=== PATIENT | female | born 2000 | race Caucasian/White ===

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

== ENCOUNTER 2018-01-04 11:29 | Observation (INO) ==
[2018-01-04 12:10] LABS: Bilirubin,Urine Negative (Negative); Blood,Urine Negative (Negative); Clarity,Urine Turbid (Clear); Color,Urine Yellow (Yellow); Glucose,Urine (UA) Normal (Normal); Ketones,Urine 15 mg/dL (Negative); Leukocyte Esterase,Urine Large (Negative); Nitrite,Urine Negative (Negative); Protein,Urine Trace mg/dL (Neg-Trace); Specific Gravity,Urine 1.023 (1.010-1.025); Urobilinogen,Urine Normal (Normal)
[2018-01-04 12:11] LABS: Bacteria,Urine Many per hpf (None-Few); Squamous Epithelial Cell,Urine Many per lpf (None-Few); WBC,Urine TNTC per hpf (0-3)
[2018-01-04 12:20] LABS: Hyaline Casts,Urine None Seen per lpf (None-Few)
--- NOTE | 2018-01-04 13:31 | OB/GYN Progress Note ---
Date of Encounter: 01/04/18 Time of Encounter: 13:28 - Assessment and Plan (1) 36 weeks gestation of Current Visit: Yes Status: Acute (2) Uterine contractions Current Visit: Yes Status: Acute No change on serial cervical exams. Patient UA indicates possible UTI, will give Rx for Keflex 1000 mg twice a day for 7 days. Starts home with 1 to return to triage precautions. Patient verbalizes understanding Subjective - Subjective Interval history: 36+0 weeks gestation presents to labor and delivery triage with complaints of contractions since 5 AM. Patient states she has been having nausea and contractions since 5:00 this morning, also reports frequent urination. Patient states she thinks she might be leaking some fluid. Reports good movement and denies vaginal bleeding Antepartum ROS: loss of fluid, movement normal, contractions, no vaginal bleeding Objective - Vital Signs Vital Signs: Intake and Output 01/03/18 01/04/18 01/04/18 23:59 07:59 15:59 Other: Weight 63.8 kg Patient Weight 01/04/18 23:59 Weight 63.8 kg - Exam FHR: auscultation normal FHR comments: Baseline 145 Abdomen: Present: normal appearance, soft, gravid Cervical dilation: 3-4/80/-1 - Labs Labs: Abnormal lab results Urine Clarity Turbid (Clear) A 01/04/18 11:50 Urine Ketones 15 mg/dL (Negative) H 01/04/18 11:50 Ur Leukocyte Esterase Large (Negative) H 01/04/18 11:50 Urine Microscopic RBC 5-15 per hpf (0-3) H 01/04/18 11:50 Urine Microscopic WBC TNTC per hpf (0-3) H 01/04/18 11:50 Ur Squamous Epith Cells Many per lpf (None-Few) H 01/04/18 11:50 Urine Bacteria Many per hpf (None-Few) H 01/04/18 11:50 Ur Culture Indicated? NO. (NO) A 01/04/18 11:50
[2018-01-04 15:30] LABS: Amphetamine Screen,Urine Negative ng/mL (Cutoff=1000); Barbiturate Screen,Urine Negative ng/mL (Cutoff=200); Benzodiazepines Screen,Urine Negative ng/mL (Cutoff=200); Cannabinoid Screen,Urine Negative ng/mL (Cutoff = 50); Cocaine Screen,Urine Negative ng/mL (Cutoff= 300); Opiate Screen,Urine Negative ng/mL (Cutoff=300); Phencyclidine Screen,Urine Negative ng/mL (Cutoff=25)
== END 2018-01-04 13:37 | disposition home or self-care (01) ==
LOC: 1NENULAB
PROVIDERS: ADMIT Advanced Practice Midwife; ATTEND Advanced Practice Midwife

== ENCOUNTER 2018-01-05 13:44 | Observation (INO) ==
[2018-01-05 14:51] LABS: Bilirubin,Urine Small (Negative); Blood,Urine Negative (Negative); Color,Urine Orange (Yellow); Glucose,Urine (UA) Normal (Normal); Ketones,Urine 40 mg/dL (Negative); Leukocyte Esterase,Urine Moderate (Negative); Nitrite,Urine Positive (Negative); Protein,Urine 30 mg/dL (Neg-Trace); Specific Gravity,Urine 1.027 (1.010-1.025); Urobilinogen,Urine Normal (Normal)
[2018-01-05 14:53] LABS: Bacteria,Urine Few per hpf (None-Few); Squamous Epithelial Cell,Urine Many per lpf (None-Few); WBC,Urine 30-50 per hpf (0-3)
[2018-01-05 14:55] LABS: Clarity,Urine Hazy (Clear)
[2018-01-05] MEDS ORDERED: Ondansetron ODT 4 MG TAB.RAPDIS SL ONE (15:00)
[2018-01-05] MEDS ORDERED: Ringers Solution, Lactated 1,000 ML IVC ONE (15:04)
--- NOTE | 2018-01-05 15:04 | OB/GYN Progress Note ---
Date of Encounter: 01/05/18 Time of Encounter: 15:01 - Assessment and Plan (1) 36 weeks gestation of Current Visit: Yes Status: Acute Continuous electronic monitoring 2 hours (2) High risk teen in third trimester Current Visit: Yes Status: Acute (3) Uterine contractions Current Visit: Yes Status: Acute IV bolus of LR Cervix unchanged after 2 hours labor precautions given Discharge home (4) Von Willebrand disease Current Visit: Yes Status: Acute Subjective - Subjective Principal diagnosis: abdominal pain in Interval history: Ms. Sanchez is a 17-year-old at 36 weeks 1 day gestational age with an EDB of 02/01/18 dated by LMP who presents with complaints of contractions continued from yesterday. She reports there 10 minutes apart. She also complains of increased fluid leaking. She also complains of nausea with vomiting and diarrhea she states that started this morning. She denies fever. She reports positive movement, and denies vaginal bleeding. Antepartum ROS: loss of fluid, movement normal, contractions, no vaginal bleeding Objective - Exam FHR: category 1 FHR comments: Baseline 135 Moderate variability Accelerations present 15 x 15 No decelerations FHR category I Contractions every 2-3 minutes and palpate mild. She reports she is only feeling one about every 10 minutes. Auscultation: bilateral: normal Abdomen: Present: normal appearance, soft, gravid Uterus: Present: normal, firm Cervical dilation: 4 Cervix effacement: 80 station: -2 - Labs Labs: Abnormal lab results Ur Specimen Adequacy See below A 01/05/18 14:30 Urine Color [place] (Yellow) A 01/05/18 14:30 Urine Clarity Hazy (Clear) A 01/05/18 14:30 Ur Specific [place] 1.027 (1.010-1.025) H 01/05/18 14:30 Urine Protein 30 mg/dL (Neg-Trace) H 01/05/18 14:30 Urine Ketones 40 mg/dL (Negative) H 01/05/18 14:30 Urine Nitrite Positive (Negative) A 01/05/18 14:30 Urine Bilirubin Small (Negative) H 01/05/18 14:30 Ur Leukocyte Esterase Moderate (Negative) H 01/05/18 14:30
[2018-01-05] MEDS ORDERED: Ondansetron 4 MG/2 ML VIAL IVP ONE (15:05)
[2018-01-05 15:08] LABS: Amphetamine Screen,Urine Negative ng/mL (Cutoff=1000); Barbiturate Screen,Urine Negative ng/mL (Cutoff=200); Benzodiazepines Screen,Urine Negative ng/mL (Cutoff=200); Cannabinoid Screen,Urine Negative ng/mL (Cutoff = 50); Cocaine Screen,Urine Negative ng/mL (Cutoff= 300); Opiate Screen,Urine Negative ng/mL (Cutoff=300); Phencyclidine Screen,Urine Negative ng/mL (Cutoff=25)
[2018-01-05 15:09] LABS: Mucus,Urine Many (Few)
[2018-01-05 15:10] LABS: Yeast,Urine Few per hpf (None Seen)
[2018-01-05 15:11] LABS: Renal Epithelial Cells,Urine Few per hpf (None-Few); Transitional Epi Cells,Urine Few per hpf (None-Few)
== END 2018-01-05 17:09 | disposition home or self-care (01) ==
LOC: 1NENULAB
PROVIDERS: ADMIT Obstetrics & Gynecology; ATTEND Obstetrics & Gynecology

== ENCOUNTER 2018-01-06 12:57 | Observation (INO) ==
--- NOTE | 2018-01-06 14:57 | OB/GYN Progress Note ---
Date of Encounter: 01/06/18 Time of Encounter: 14:54 - Assessment and Plan (1) Encounter for suspected PROM, with rupture of membranes not found Current Visit: Yes Status: Acute Nitrazine negative, ferning negative (2) 36 weeks gestation of Current Visit: No Status: Acute (3) Uterine contractions Current Visit: No Status: Acute No change on serial cervical exams, discharged home with labor and when to return to triage precautions Subjective - Subjective Interval history: 36+2 weeks gestation presents to labor and delivery triage with complaints of contractions last night getting stronger this morning, has been feeling contractions since wednesday. Patient states is leaking some fluid. Reports good movement and denies vaginal bleeding Antepartum ROS: loss of fluid, movement normal, contractions, no vaginal bleeding Objective - Vital Signs Vital Signs: Intake and Output 01/05/18 01/06/18 01/06/18 23:59 07:59 15:59 Other: Weight 64 kg Patient Weight 01/06/18 23:59 Weight 64 kg - Exam FHR: auscultation normal FHR comments: Baseline 130 Abdomen: Present: normal appearance, soft, gravid Cervical dilation: 4/80/-2
[2018-01-06 15:32] LABS: Amphetamine Screen,Urine Negative ng/mL (Cutoff=1000); Barbiturate Screen,Urine Negative ng/mL (Cutoff=200); Benzodiazepines Screen,Urine Negative ng/mL (Cutoff=200); Cannabinoid Screen,Urine Negative ng/mL (Cutoff = 50); Cocaine Screen,Urine Negative ng/mL (Cutoff= 300); Opiate Screen,Urine Negative ng/mL (Cutoff=300); Phencyclidine Screen,Urine Negative ng/mL (Cutoff=25)
== END 2018-01-06 15:04 | disposition home or self-care (01) ==
LOC: 1NENULAB
PROVIDERS: ADMIT Student in an Organized Health Care Education/Training Program; ATTEND Student in an Organized Health Care Education/Training Program

== ENCOUNTER → 2018-01-12 22:46 | Observation (INO) ==
[2018-01-12 22:03] LABS: Amphetamine Screen,Urine Negative ng/mL (Cutoff=1000); Barbiturate Screen,Urine Negative ng/mL (Cutoff=200); Benzodiazepines Screen,Urine Negative ng/mL (Cutoff=200); Cannabinoid Screen,Urine Negative ng/mL (Cutoff = 50); Cocaine Screen,Urine Negative ng/mL (Cutoff= 300); Opiate Screen,Urine Negative ng/mL (Cutoff=300); Phencyclidine Screen,Urine Negative ng/mL (Cutoff=25)
--- NOTE | 2018-01-12 22:44 | OB/GYN Progress Note ---
Date of Encounter: 01/12/18 Time of Encounter: 22:40 - Assessment and Plan (1) 37 weeks gestation of Current Visit: Yes Status: Acute (2) Uterine contractions Current Visit: No Status: Acute Admission exam unchanged from office exam, no change on follow-up cervical exams. Discharged home with labor and when to return to triage precautions. Patient verbalizes understanding Subjective - Subjective Interval history: 37+1 presents with contractions since 1900. Pt states she started to have contractions and they have increased in intensity, reports good movement, denies vaginal bleeding or leaking of fluid. Antepartum ROS: movement normal, contractions, no loss of fluid, no vaginal bleeding Objective - Vital Signs Vital Signs: Intake and Output 01/12/18 01/12/18 01/12/18 07:59 15:59 23:59 Other: Weight 65.1 kg Patient Weight 01/12/18 23:59 Weight 65.1 kg - Exam FHR: auscultation normal Abdomen: Present: normal appearance, soft, gravid Cervical dilation: 4/80/-2
== END | disposition home or self-care (01) ==
LOC: 1NENULAB
PROVIDERS: ADMIT Advanced Practice Midwife; ATTEND Advanced Practice Midwife

== ENCOUNTER 2018-01-22 20:46 | Inpatient (IN) ==
--- NOTE | 2018-01-22 20:19 | OB/GYN History & Physical ---
Date of Encounter: 01/22/18 Time of Encounter: 20:16 Assessment and Plan (1) 38 weeks gestation of Current visit: Yes Status: Acute admitted for observation Will admit for delivery with cervical change (2) Von Willebrand disease Current visit: No Status: Acute Patient to follow up with Hematology antepartum Consult available in patient's chart History of Present Illness Chief complaint: contractions HPI: Ms. Sanchez is a 17 year old female at 38w4d presents to labor and delivery with complaints of contractions that started in the middle of the night and progressively have gotten stronger and closer together. Patient denies LOF but does reports pink spotting. Patient reports +FM but reports it has decreased. Patient reports she was 4cm at her last appointment. Primary OB provider is Dr. Nazario. Blood type: B+ Rubella: Immune Hep B: Nonreactive GBS: Negative Past Med Surg Social Fam HX - Past Medical History Source: patient Medical history: asthma, migraine, other Psychiatric history: anxiety, ADHD, bipolar, depression, PTSD, other - Past Surgical History Surgical History: other - Social History Smoking Status: Former smoker Smokeless Tobacco Status: No Alcohol use: none Drug use: none Activity Level: Independent ambulation Recent Out of Country Travel Within the Last 8 Weeks: No Exposure or Possible Exposure to Illness During Travel: No - Family History Mother Living Status: Still Living Hx Family Cardiac Disorders: Yes (unsure of heart condition.) Hx Family Respiratory Disorders: Yes (asthma) Hx Family Cancer: No Hx Family GI Disorders: No Hx Family Endocrine Disorder: Yes (diabetes) Hx Family Neuromuscular Disorders: No Hx Family Neurologic Disorders: No Hx Family HEENT Disorders: No Hx Family Autoimmune Disorders: No Obstetrical History - Pregnancies : 1 Para: 0 Term: 0 : 0 Ab's: 0 Livin Medications and Allergies Albuterol Sulfate [Albuterol Inhaler] 2 puff IH Q6HR PRN 10/11/16 [History] Pnv No.122/Iron/Folic Acid [ Multi Tablet] 1 each PO DAILY 11/30/17 [ History] 3 Allergy/AdvReac Type Severity Reaction Status Date / Time aripiprazole [From Abilify] Allergy Swelling Verified 01/22/18 19:51 of Lip/Tongue/Throat Carbinoxamine [From Rondec] Allergy See Verified 05/19/18 19:51 Comments prednisone Allergy Swelling Verified 01/22/18 19:51 of Lip/Tongue/Throat pseudoephedrine [From [facility]] Allergy See Verified 01/22/18 19:51 Comments Review of System OB - Constitutional Constitutional ROS IM: no chills, no fever(s), no headache(s) - Cardiovascular Cardiovascular: no chest pain, no palpitations, no pedal edema, no syncope - Respiratory Respiratory: no cough - Gastrointestinal Gastrointestinal: nausea, no constipation, no diarrhea, no heartburn, no vomiting - Genitourinary Genitourinary: urinary frequency, vaginal discharge (per HPI), no abnormal vaginal bleeding, no difficulty urinating, no dysuria, no flank pain, no urinary hesitancy, no urinary incontinence, no vaginal pruritis Exam - Constitutional Constitutional: well developed, well nourished, average body habitus - HEENT HEENT: Normocephaly, Mucus Membranes Moist - Neck Neck exam: full ROM, supple - Lungs Respiratory exam: CTAB - Cardiovascular Cardiovascular exam: RRR, +S1, +S2 - Abdomen Abdomen: Present: bowel sounds normal, gravid, non tender - Extremities Extremities exam: full ROM, normal capillary refill Deep Tendon Reflex Grade: 2+ Normal - Cervix Dilation: 5 (per RN) Effacement: 90 Station: -1 - Uterus Uterus exam: Present: normal size, normal contour - Anus/Rectum Anus/Rectum: Present: normal perianal skin - Comments Comments: FHR 135 bpm moderate amount of variability +15x15 accels no decels noted. Cat. 1 tracing. Contractions 2-3 min apart. Results All other labs normal. - VTE Reasons for not Prescribing Prophylaxis: Treatment not Indicated - Low risk for VTE
[2018-01-22 20:39] LABS: Amphetamine Screen,Urine Negative ng/mL (Cutoff=1000); Barbiturate Screen,Urine Negative ng/mL (Cutoff=200); Benzodiazepines Screen,Urine Negative ng/mL (Cutoff=200); Cannabinoid Screen,Urine Negative ng/mL (Cutoff = 50); Cocaine Screen,Urine Negative ng/mL (Cutoff= 300); Opiate Screen,Urine Negative ng/mL (Cutoff=300); Phencyclidine Screen,Urine Negative ng/mL (Cutoff=25)
[~2018-01-22 20:46] MED LIST: *HR* Nalbuphine 10 MG/ML AMPUL IVP PRN; Famotidine 20 MG/2 ML VIAL IVP PRN; Naloxone 0.4 MG/ML INJ IVP PRN; Ondansetron 4 MG/2 ML VIAL IVP PRN; Ringers Solution, Lactated 1,000 ML IVC SCH; Ringers Solution, Lactated 1,000 ML ONE
[2018-01-22 20:52] LABS: Basophils % 0.2 %; Eosinophils # 0.1 K/mcL (0.0-0.6); Eosinophils % 0.5 %; Hematocrit 35.5 % (35.3-44.9); Hemoglobin 11.9 g/dL (11.5-15.4); Immature Granulocytes % 0.7 % (0-4); Lymphocytes # 2.1 K/mcL (0.6-4.6); Lymphocytes % 15.7 %; Mean Corpuscular HGB Conc 33.5 g/dL (31.6-35.5); Mean Corpuscular Hemoglobin 27.7 pg (28.0-33.3); Mean Corpuscular Volume 82.6 fL (83.0-100.0); Mean Platelet Volume 13.7 fL (9.4-12.4); Monocytes % 7.8 %; Neutrophils # 9.8 K/mcL (1.6-8.9); Platelet Count 178 K/mcL (140-400); Red Cell Distribution Width 14.1 % (11.5-14.5); Segmented Neutrophils % 75.1 %
[2018-01-22] MEDS ORDERED: *HR* FentaNYL (PF) 100 MCG/2 ML VIAL EP ONE (21:01)
[2018-01-22] MEDS ORDERED: Bupivacaine-MPF 0.25% 10 ML VIAL EP ONE (21:01)
[2018-01-22] MEDS ORDERED: Epidural Premix (fent/bupiv) 110 ML EP SCH (21:15)
[2018-01-22] MEDS ORDERED: Epidural Premix (fent/bupiv) 110 ML EP ONE (21:15)
[2018-01-22] MEDS ORDERED: Ringers Solution, Lactated 1,000 ML ONE (21:22)
--- NOTE | 2018-01-22 22:01 | Anesthesia Evaluation PreOp ---
Date of Encounter: 01/22/18 Time of Encounter: 21:03 - Past History Planned Operation: labor epidural Cardiac History: Denies any Significant Hx Pulmonary History: Former smoker (started at age 6 years, smoked about 1/2 ppd until about 10 months ago.), Asthma (uses inhaler prn. Last used about 1 month ago.) ENVIRONMENTAL AIDE History: Denies Any Significant HX Other Medical History: Other (states was diagnosed with von Willebrand's disease in 2015. Consulted with hematology reently (within last month) and had labs drawn. Patient has normal labs and cleared by hemaology for labor/epidural/ delivery without any intervention necessary.) Anesthesia History: No Prior Anesthetic Complications, Past Anesthesia (PE tubes. No problems with GA. No FHAP.) : Yes Alcohol Use: none Drug use: none Medications and Allergies Albuterol Sulfate [Albuterol Inhaler] 2 puff IH Q6HR PRN 10/11/16 [History] Pnv No.122/Iron/Folic Acid [ Multi Tablet] 1 each PO DAILY 11/30/17 [ History] 3 Allergy/AdvReac Type Severity Reaction Status Date / Time aripiprazole [From Abilify] Allergy Swelling Verified 01/22/18 19:51 of Lip/Tongue/Throat Carbinoxamine [From Rondec] Allergy See Verified 01/22/18 19:51 Comments prednisone Allergy Swelling Verified 01/22/18 19:51 of Lip/Tongue/Throat pseudoephedrine [From Rondec] Allergy See Verified 01/22/18 19:51 Comments - Meds/Allergy Pre-op Review Medications Reviewed: Yes Allergies Reviewed: Yes Beta Blockers on Current Med List: No Anesthesia Results - Labs 01/22/18 20:30 Anesthesia Exam VSS and FHTs stable. Height: 4'8" Weight: 65 kg NPO (# of Hours): 3 Pain Scale: 6 Pain Scale Used: Numeric (1 - 10) - HEENT Pupil (Motor): Pupils equal, EOMI Mallampati: II Teeth: Normal Oral Opening: Greater than 3 - ENVIRONMENTAL AIDE LOC: Oriented ENVIRONMENTAL AIDE Motor: Normal RUE, Normal LUE, Normal RLE, Normal LLE, Normal Face ENVIRONMENTAL AIDE Sensory: Normal: RUE, LUE, RLE, LLE, Face - Cardiac Rhythm: Regular Murmur: None - Pulmonary Breath Sounds: bilateral Clear Respiratory Effort: Symmetrical Anesthesia Assess/Plan ASA Score: 2 Modified Taj Scale for Level of Consciousness: Cooperative, oriented, and tranquil Anesthetic Plan: Regional Monitoring Plan: Standard Monitors
--- NOTE | 2018-01-22 22:07 | Anesthesia Procedures ---
Date of Encounter: 01/22/18 Time of Encounter: 21:21 Procedures: Anesthesia - Epidural/Spinal Patient ID/Chart reviewed: Yes Patient examined: Yes OB Eval: Gestational age: 38 OB Eval: : 1 OB Eval: Hx Para: 0 OB Eval: Dilated at (cm): 6 OB Eval: Contractions: Non-stressed pattern Consent Obtained: Yes Supplemental Oxygen: None/Room Air Site Prep: Aseptic Technique, Sterile prep and drape, Povidone-Iodine 1% Patient position: upright Local Anesthetic: Lidocaine 1% Amount of Local Anesthetic used: 3 Touhy Needle Gauge: 18 Touhy Needle Depth (cm): 5 Catheter Depth at Skin (cm): 18 Test Dose (1.5% Lido + Epi): Volume given (mls): 3 Test Dose Result: Negative Loading Dose: 0.25% Marcaine (mls): 8 Loading Dose: Fentanyl (mcg): 100 Loading Dose Administered: Thru Catheter Infusion Med: 0.125% Bupivacaine w/ 2 mcg/ml Fentanyl Infusion Rate (mls/hr): [address]: Tegaderm, Tape Interspace Used: L3-L4 Loss of Resistance (NO): Yes Blood: No CSF: No Paresthesia: No Vitals + FHT's: 3 Vital Signs Time 2121 2137 2140 2145 2150 BP 126/71 133/77 129/77 103/69 106/75 Pulse 98 94 98 93 110 FHTs 130 130 130 130 130
--- NOTE | 2018-01-22 23:30 | OB Labor Progress Note ---
Date of Encounter: 01/22/18 Time of Encounter: 23:28 Labor Progress Note - Subjective Subjective: Patient resting comfortable with epidural in place. Discussed POC with patient. Patient denies any questions or concerns. - Cervix Cervix: 7/100/0 - Heart Tones Heart Tones: 140 bpm moderate variability +15x15 accels no decels noted. Cat. 1 tracing - [place]: 2-5 min apart - Interventions Interventions: SVE, AROM moderate amount of clear fluid. Patient tolerated well. - Plan Plan: Continue labor management. anticipate SVE
[2018-01-23] MEDS ORDERED: Oxytocin 20 units/ LR 1000 mL 20 UNIT/1,000 ML BAG IVC ONE (02:35)
[2018-01-23] MEDS ORDERED: Acetaminophen 325 MG TABLET PO ONE (04:25)
[2018-01-23] MEDS ORDERED: Oxytocin 20 units/ LR 1000 mL 20 UNIT/1,000 ML BAG IVC SCH ×2 (04:45→08:09)
--- NOTE | 2018-01-23 06:02 | OB/GYN Procedure Note ---
Delivery - Delivery Date: 01/23/18 Provider: Shandra Hooker Intrapartum events: none Delivery induction: none Delivery augmentation: rupture of membranes Delivery monitor: external FHT, external uterine Anesthesia: epidural Quantitated Blood Loss: 200 - Infant (s) Infant A Infant Delivery Date: 01/23/18 Infant Delivery Time: 05:29 Presentation: vertex Position: LEV Route of delivery: Gender: Female Viability: Viable Pounds: 6 Ounces: 15 Weight Gram: 3145 kg at 1 minute: 9 at 5 mins: 10 Shoulder Dystocia: not encountered Specimens collected: cord blood Placenta: spontaneous, uterine exploration Cord: nuchal cord (x1 loose), 3 umbilical vessels, nuchal reduced - Repair Episiotomy: none Laceration Description: Labial (left labial abrasion repaired with 4-0 vicryl), Superficial - Complications Delivery complications: none - Disposition Mom disposition: stable in LDR [place] disposition: stable in LDR - Comments Comments: Called to LDR patient complete and pushing with contractions. Patient in stirrups, vaginal prep completed. Under maternal effort patient spontaneously delivered a viable female over an intact perineum. Nuchal cord x1 loose and reduced, no shoulder dystocia or meconium noted. was placed on maternal abdomen for skin to skin. Cord was clamped and cut after pulsations ceased. A small right labial abrasion repaired wit 4-0 vicryl. Placenta delivered spontaneously and intact. Pericare provided. Ice pack to perineum. Both mother and infant stable in LDR for 2 hour recovery.
[2018-01-23] MEDS ORDERED: Lanolin 7 G OINT...G. TP PRN (08:09)
[2018-01-23] MEDS ORDERED: Acetaminophen 325 MG TABLET PO PRN (08:09)
[2018-01-23] MEDS ORDERED: Benzocaine/Menthol 56 GM AEROSOL SPRAY TP PRN (08:09)
[2018-01-23] MEDS: Prenatal Vit/FA 1 EACH TABLET PO SCH (12:05)
[2018-01-23] MEDS: Ibuprofen 600 MG TABLET PO PRN ×2 (12:05→19:51)
[2018-01-24] MEDS: Ibuprofen 600 MG TABLET PO PRN ×2 (04:03→09:58)
[2018-01-24 07:40] VITALS: BP 125/71
--- NOTE | 2018-01-24 08:50 | Discharge Summary ---
Date of Encounter: 01/24/18 Time of Encounter: 08:48 - Discharge Diagnosis (1) Teenage mother Priority: Secondary Status: Acute (2) Vaginal delivery Priority: Primary Status: Acute Comments: Pain well controlled with by mouth pain meds Ambulating independently Tolerating regular diet Voiding independently Passing flatus, but no BM yet Lochia light Bottlefeeding Discharge home today - Discharge Medications Prescriptions: Ibuprofen [Motrin] 600 mg PO Q6HR PRN #30 tablet PRN Reason: Cramping Docusate [Colace] 100 mg PO BID #30 capsule Home Medications: Albuterol Sulfate [Albuterol Inhaler] 2 puff IH Q6HR PRN 10/11/16 [History] Pnv No.122/Iron/Folic Acid [ Multi Tablet] 1 each PO DAILY 11/30/17 [ History] Acetaminophen [Tylenol] 650 mg PO Q6HR PRN tablet 01/24/18 [Rx] Benzocaine/Menthol [place] [Dermoplast [place]] 1 appl TP QID PRN aerosol 01/24/18 [Rx] Docusate [Colace] 100 mg PO BID #30 capsule 01/24/18 [Rx] Ibuprofen [Motrin] 600 mg PO Q6HR PRN #30 tablet 01/24/18 [Rx] Lanolin [Lansinoh] 1 appl TP TID PRN oint...g. 01/24/18 [Rx] Allergies/Adverse Reactions: 3 Allergy/AdvReac Type Severity Reaction Status Date / Time aripiprazole [From Abilify] Allergy Swelling Verified 01/22/18 19:51 of Lip/Tongue/Throat Carbinoxamine [From Rondec] Allergy See Verified 01/22/18 19:51 Comments prednisone Allergy Swelling Verified 01/22/18 19:51 of Lip/Tongue/Throat pseudoephedrine [From Rondec] Allergy See Verified 01/22/18 19:51 Comments Data Procedures and tests throughout hospitalization: Laboratory Tests 01/22/18 01/22/18 20:02 20:30 WBC 13.0 H RBC 4.30 Hgb 11.9 Hct 35.5 MCV 82.6 L MCH 27.7 L MCHC 33.5 RDW 14.1 Plt Count 178 MPV 13.7 H Immature Gran % 0.7 Seg Neutrophils % 75.1 Lymphocytes % 15.7 Monocytes % 7.8 Eosinophils % 0.5 Basophils % 0.2 Neutrophils # 9.8 H Lymphocytes # 2.1 Monocytes # 1.0 Eosinophils # 0.1 Basophils # 0.0 Urine Opiates Screen Negative Ur Barbiturates Screen Negative Ur Phencyclidine Scrn Negative Ur Amphetamines Screen Negative U Benzodiazepines Scrn Negative Urine Cocaine Screen Negative U Marijuana (THC) Screen Negative Date of admission: 01/22/18 20:46 Consults: 01/23/18 08:09 Consult to Tension Machine Operator [CONS] Routine Comment: Vaginal delivery, consult needed Consult to Casino Floor Walker [CONS] Routine Reason for SW Consult: teen mother Discharging clinician: Lena Aguiar Anticipated date of discharge: 01/24/18 - Patient Status Disposition: Home, Self-Care Condition: Good Functional capacity at discharge: independent ambulation Overall status at discharge: patient is progressing back to baseline - Discharge Instructions Follow Up With: Diana Nazario DO [Partnered Physician] - - Diet and Activity Activity: increase activity as tolerated Diet: regular diet Hospital Course Reason for admission: active labor, IUP at term Delivery: Episiotomy: none Laceration: other (left labial) Other procedures: none complications: none Discharge diagnosis: IUP at term delivered [place] baby: female Time Attestation: Total time spent providing and/or coordinating discharge services: Time Spent: Less than 30 minutes Exam - Constitutional Vitals: Temp Pulse Resp BP Pulse Ox 97.7 F 79 16 125/71 98 01/24/18 07:39 01/24/18 07:39 01/24/18 08:15 01/24/18 07:39 01/24/18 03:09 General appearance IM: A&O X 3 - Respiratory Respiratory exam: Present: CTAB - Cardiovascular Cardiovascular exam IM: Present: RRR, +S1, +S2 - GI/Abdominal GI/Abdominal exam IM: normal bowel sounds, no peritoneal signs - Rectal Rectal exam: deferred - Uterine Tone: Firm Uterus Position: 2 Fingers Below Umbilicus, Midline - Extremities Exam Extremities exam IM: Present: normal capillary refill, normal inspection, radial pulses palpable and symmetrical - Neurological Exam Neurological exam: alert, oriented X3 - Psychiatric Additional comments: Ms. Sanchez reports she is feeling well today. She does report a history of anxiety and depression. Signs and symptoms of depression discussed with her and her partner and they both verbalized when to call for help. - Other Additional findings: Breasts: Soft, nontender. Methods for reducing discussed and patient verbalized understanding.
[2018-01-24] MEDS: Prenatal Vit/FA 1 EACH TABLET PO SCH (09:58)
== END 2018-01-24 13:12 | disposition home or self-care (01) | DRG 560 ==
LOC: 1NENULAB → 1NENUOBS 01-23 07:54
PROVIDERS: ADMIT Advanced Practice Midwife; ATTEND Advanced Practice Midwife

== ENCOUNTER → 2018-10-29 01:15 | Observation (INO) ==
--- NOTE | 2018-10-29 00:07 | OB/GYN Progress Note ---
Date of Encounter: 10/29/18 Time of Encounter: 00:02 - Assessment and Plan (1) 28 weeks gestation of Current Visit: Yes Status: Acute NST reactive Positive blood type 1 hour continuous monitoring Anticipate discharge home with labor precautions, bleeding precautions, and kick counts Follow up in the office as scheduled with routine care and PRN POC per consult with Dr Mcconnell (2) NST (non-stress test) reactive Current Visit: Yes Status: Acute Subjective - Subjective Principal diagnosis: Hit stomach on couch Interval history: Ms Sanchez is a at 28 weeks 0 days that presents to labor and delivery triage with c/o hitting her abdomen directly on a couch at 2100 when she was moving it. She states her baby has decreased movement, but is still moving. She also notes that her stomach is tightening every 15-30 minutes. She denies leaking of fluid, vaginal bleeding, headaches, vision changes, epigastric pain, and severe pain. She has been seen by Dr Nazario for her care. Antepartum ROS: movement normal (moving but patient states is decreased) Objective - Vital Signs Vital Signs: Intake and Output 10/28/18 10/28/18 10/29/18 15:59 23:59 07:59 Other: Weight 61.4 kg - Exam FHR: auscultation normal, category 1 FHR comments: FHTs 150, no ctx per toco/palpation Auscultation: bilateral: normal Abdomen: Present: normal appearance, soft, gravid Uterus: Present: normal. Absent: firm, tenderness
[2018-10-29 00:33] LABS: Amphetamine Screen,Urine Negative ng/mL (Cutoff=1000); Barbiturate Screen,Urine Negative ng/mL (Cutoff=200); Benzodiazepines Screen,Urine Negative ng/mL (Cutoff=200); Cannabinoid Screen,Urine Negative ng/mL (Cutoff = 50); Cocaine Screen,Urine Negative ng/mL (Cutoff= 300); Opiate Screen,Urine Negative ng/mL (Cutoff=300); Phencyclidine Screen,Urine Negative ng/mL (Cutoff=25)
[~2018-10-29 01:15] MED LIST changes: -*HR* Nalbuphine 10 MG/ML AMPUL IVP PRN; +Acetaminophen 325 MG TABLET PO STA; -Famotidine 20 MG/2 ML VIAL IVP PRN; -Naloxone 0.4 MG/ML INJ IVP PRN; -Ondansetron 4 MG/2 ML VIAL IVP PRN; -Ringers Solution, Lactated 1,000 ML IVC SCH; -Ringers Solution, Lactated 1,000 ML ONE
== END | disposition home or self-care (01) ==
LOC: 1NENULAB
PROVIDERS: ADMIT Advanced Practice Midwife; ATTEND Advanced Practice Midwife

== ENCOUNTER → 2018-11-15 02:56 | Observation (INO) ==
[2018-11-15 01:02] LABS: Bilirubin,Urine Negative (Negative); Blood,Urine Trace (Negative); Clarity,Urine Cloudy (Clear); Color,Urine Dark Yellow (Yellow); Glucose,Urine (UA) 100 mg/dL (Normal); Ketones,Urine Trace mg/dL (Negative); Leukocyte Esterase,Urine Moderate (Negative); Nitrite,Urine Negative (Negative); Protein,Urine Negative (Neg-Trace); Specific Gravity,Urine 1.015 (1.010-1.025); Urobilinogen,Urine Normal (Normal)
[2018-11-15 01:04] LABS: Bacteria,Urine Few per hpf (None-Few); Hyaline Casts,Urine None Seen per lpf (None-Few); Squamous Epithelial Cell,Urine Many per lpf (None-Few); WBC,Urine 50-100 per hpf (0-3)
[2018-11-15 01:13] LABS: Amphetamine Screen,Urine Negative ng/mL (Cutoff=1000); Barbiturate Screen,Urine Negative ng/mL (Cutoff=200); Benzodiazepines Screen,Urine Negative ng/mL (Cutoff=200); Cannabinoid Screen,Urine Negative ng/mL (Cutoff = 50); Cocaine Screen,Urine Negative ng/mL (Cutoff= 300); Opiate Screen,Urine Negative ng/mL (Cutoff=300); Phencyclidine Screen,Urine Negative ng/mL (Cutoff=25)
[2018-11-15 02:26] LABS: Candida DNA DETECTED (Not Detect); Gardnerella DNA Not Detected (Not Detect); Trichomonas DNA Not Detected (Not Detect)
--- NOTE | 2018-11-15 02:44 | OB/GYN Progress Note ---
Date of Encounter: 11/15/18 Time of Encounter: 02:40 - Assessment and Plan (1) 30 weeks gestation of Current Visit: Yes Status: Acute NST reactive Vaginosis panel - flory; rx sent and given to patient Urine - contaminated Discharge home with labor precautions Follow up in office with routine care and prn POC per consult with Dr Ross (2) NST (non-stress test) reactive Current Visit: Yes Status: Acute (3) Vaginal yeast infection Current Visit: Yes Status: Acute Subjective - Subjective Principal diagnosis: Vaginal pain and cramping Interval history: Ms Sanchez is a at 30 weeks and 3 days that presents to triage with c/o sharp back pain and cramping x 1 day. She states positive movement. She denies headache, vision changes, epigastric pain, leaking of fluid, and vaginal discharge/bleeding. She is seen by Dr Nazario for her care. Antepartum ROS: movement normal Objective - Vital Signs Vital Signs: Intake and Output 11/14/18 11/14/18 11/15/18 15:59 23:59 07:59 Other: Weight 62.1 kg Patient Weight 11/15/18 23:59 Weight 62.1 kg - Exam FHR: auscultation normal, category 1 FHR comments: no contractions and baseline 150 Abdomen: Present: normal appearance, soft, gravid. Absent: tenderness Uterus: Present: normal. Absent: firm, tenderness Cervical dilation: 3 - Labs Labs: Abnormal lab results Urine Clarity Cloudy (Clear) A 11/15/18 00:23 Urine Glucose (UA) 100 mg/dL (Normal) H 11/15/18 00:23 Urine Ketones Trace mg/dL (Negative) H 11/15/18 00:23 Urine Blood Trace (Negative) H 11/15/18 00:23 Ur Leukocyte Esterase Moderate (Negative) H 11/15/18 00:23 Urine Microscopic RBC 5-15 per hpf (0-3) H 11/15/18 00:23 Urine Microscopic WBC 50-100 per hpf (0-3) H 11/15/18 00:23 Ur Squamous Epith Cells Many per lpf (None-Few) H 11/15/18 00:23 Ur Culture Indicated? NO. (NO) A 11/15/18 00:23 Flory species DNA DETECTED (Not Detect) A 11/15/18 01:30
== END | disposition home or self-care (01) ==
LOC: 1NENULAB
PROVIDERS: ADMIT Advanced Practice Midwife; ATTEND Advanced Practice Midwife

== ENCOUNTER 2018-11-22 14:30 | Observation (INO) ==
[2018-11-22 15:19] LABS: Amphetamine Screen,Urine Negative ng/mL (Cutoff=1000); Barbiturate Screen,Urine Negative ng/mL (Cutoff=200); Benzodiazepines Screen,Urine Negative ng/mL (Cutoff=200); Cannabinoid Screen,Urine Negative ng/mL (Cutoff = 50); Cocaine Screen,Urine Negative ng/mL (Cutoff= 300); Opiate Screen,Urine Negative ng/mL (Cutoff=300); Phencyclidine Screen,Urine Negative ng/mL (Cutoff=25)
--- NOTE | 2018-11-22 16:29 | Discharge Summary ---
Date of Encounter: 11/22/18 Time of Encounter: 16:28 - Discharge Diagnosis (1) 31 weeks gestation of Priority: Primary Status: Acute Comments: Admitted to observation from office due to cervical exam [address] Nazario. Patient reports positive movement, denies vaginal bleeding, fluid leakage and contractions. No cervical change in >2 hours. Patient offered social service consult due to homelessness but declined stating she "knows her resources" Dr. Nazario collected vaginosis panel, GC/Chlamydia in office today. (2) NST (non-stress test) reactive on surveillance Priority: Secondary Status: Acute Comments: FHR 145 bpm, moderate variability, +15x15 accels, no decels. - Discharge Medications Prescriptions: No Action Pnv No.122/Iron/Folic Acid [ Multi Tablet] 1 each PO DAILY Famotidine [Pepcid] 20 mg PO HS Home Medications: Pnv No.122/Iron/Folic Acid [ Multi Tablet] 1 each PO DAILY 11/30/17 [History] Famotidine [Pepcid] 20 mg PO HS 10/23/18 [History] Allergies/Adverse Reactions: Allergy/AdvReac Type Severity Reaction Status Date / Time aripiprazole [From Abilify] Allergy Swelling Verified 11/22/18 14:52 of Lip/Tongue/Throat Carbinoxamine [From Rondec] Allergy Anaphylaxis Verified 11/22/18 14:52 prednisone Allergy Hives Verified 11/22/18 14:52 pseudoephedrine [From Rondec] Allergy Anaphylaxis Verified 11/22/18 14:52 Data Procedures and tests throughout hospitalization: Laboratory Tests 11/22/18 14:52 Urine Opiates Screen Negative Ur Barbiturates Screen Negative Ur Phencyclidine Scrn Negative Ur Amphetamines Screen Negative U Benzodiazepines Scrn Negative Urine Cocaine Screen Negative U Marijuana (THC) Screen Negative Ur Drug Screen Interp See Below Labs on day of discharge: Labs from last 24 hours 11/22/18 14:52 Urine Opiates Screen Negative Ur Barbiturates Screen Negative Ur Phencyclidine Scrn Negative Ur Amphetamines Screen Negative U Benzodiazepines Scrn Negative Urine Cocaine Screen Negative U Marijuana (THC) Screen Negative Ur Drug Screen Interp See Below Date of admission: 11/22/18 14:30 Primary care physician: PCP NONE Consults: 11/22/18 15:54 Consult to Managed Security Sales Consultant ([employer]) [CONS] Stat Reason For Exam: Reason for SW Consult: Homeless, staying with friends. Discharging clinician: Laura Damon Anticipated date of discharge: 11/22/18 - Patient Status Disposition: Home, Self-Care Condition: Good Functional capacity at discharge: independent ambulation Overall status at discharge: patient is progressing back to baseline - Discharge Instructions Follow Up With: NONE,PCP [Primary Care Provider] - - Diet and Activity Activity: resume usual activities as tolerated Diet: regular diet Hospital Course MANAGER ARCHITECTURAL Time Attestation: Total time spent providing and/or coordinating discharge services: Time Spent: Less than 30 minutes Exam - Constitutional General appearance IM: A&O X 3, pleasant, no acute distress, answers questions appropriately - Respiratory Respiratory exam: Present: CTAB - Cardiovascular Cardiovascular exam IM: Present: RRR, +S1, +S2 - GI/Abdominal GI/Abdominal exam IM: normal bowel sounds, soft - Rectal Rectal exam: deferred - External exam: normal external exam - Extremities Exam Extremities exam IM: Present: full ROM, normal capillary refill, normal inspection - Neurological Exam Neurological exam: alert, normal gait, oriented X3 - VTE Reasons for not Prescribing Prophylaxis: Treatment not Indicated - Low risk for VTE
== END 2018-11-22 16:36 | disposition home or self-care (01) ==
LOC: 1NENULAB
PROVIDERS: ADMIT Registered Nurse; ATTEND Registered Nurse

== ENCOUNTER → 2018-12-02 16:00 | Observation (INO) ==
[2018-12-02 15:21] LABS: Amphetamine Screen,Urine Negative ng/mL (Cutoff=1000); Barbiturate Screen,Urine Negative ng/mL (Cutoff=200); Benzodiazepines Screen,Urine Negative ng/mL (Cutoff=200); Cannabinoid Screen,Urine Negative ng/mL (Cutoff = 50); Cocaine Screen,Urine Negative ng/mL (Cutoff= 300); Opiate Screen,Urine Negative ng/mL (Cutoff=300); Phencyclidine Screen,Urine Negative ng/mL (Cutoff=25)
--- NOTE | 2018-12-02 16:06 | OB/GYN Progress Note ---
Date of Encounter: 12/02/18 Time of Encounter: 16:02 - Assessment and Plan (1) 32 weeks gestation of Current Visit: Yes Status: Acute (2) NST (non-stress test) reactive on surveillance Current Visit: Yes Status: Acute Baseline 135 (3) labor Current Visit: Yes Status: Acute Speculum exam shows normal thick white discharge of , No change on serial cervical exams discharge home with labor and when to return to triage precautions. Patient verbalizes understanding. Qualifiers: labor trimester: third trimester labor delivery status: with delivery in third trimester Fetus number: single or unspecified fetus Qualified Code(s): O60.14X0 - labor third trimester with delivery third trimester, not applicable or unspecified (4) Short interval between pregnancies affecting in third trimester, antepartum Current Visit: Yes Status: Acute Subjective - Subjective Interval history: 32+6 days gestation presents to triage for labor without. Patient states she is feeling some more contractions, and think she might be leaking fluid. Ports good movement, denies vaginal bleeding. Patient has had advanced cervical dilation was 6 cm when discharged on Wednesday. Antepartum ROS: loss of fluid, movement normal, contractions, no vaginal bleeding Objective - Vital Signs Vital Signs: Intake and Output 12/02/18 12/02/18 12/02/18 07:59 15:59 23:59 Other: Weight 62.324 kg Patient Weight 12/02/18 23:59 Weight 62.324 kg - Exam FHR: auscultation normal FHR comments: Baseline 135 Abdomen: Present: soft, gravid Cervical dilation: 6/75/-3
== END | disposition home or self-care (01) ==
LOC: 1NENULAB
PROVIDERS: ADMIT Advanced Practice Midwife; ATTEND Advanced Practice Midwife

== ENCOUNTER → 2018-12-03 23:17 | Observation (INO) ==
[2018-12-03 22:14] LABS: Bilirubin,Urine Negative (Negative); Blood,Urine Negative (Negative); Clarity,Urine Cloudy (Clear); Color,Urine Yellow (Yellow); Glucose,Urine (UA) Normal (Normal); Ketones,Urine Negative (Negative); Leukocyte Esterase,Urine Large (Negative); Nitrite,Urine Negative (Negative); PH,Urine 6.5 pH Units (5.0-8.0); Protein,Urine Negative (Neg-Trace); Specific Gravity,Urine 1.015 (1.010-1.025); Urobilinogen,Urine Normal (Normal)
[2018-12-03 22:16] LABS: Bacteria,Urine Few per hpf (None-Few); Hyaline Casts,Urine None Seen per lpf (None-Few); RBC,Urine 0-3 per hpf (0-3); Squamous Epithelial Cell,Urine Many per lpf (None-Few); WBC,Urine 50-100 per hpf (0-3)
[2018-12-03 22:33] LABS: Amphetamine Screen,Urine Negative ng/mL (Cutoff=1000); Barbiturate Screen,Urine Negative ng/mL (Cutoff=200); Benzodiazepines Screen,Urine Negative ng/mL (Cutoff=200); Cannabinoid Screen,Urine Negative ng/mL (Cutoff = 50); Cocaine Screen,Urine Negative ng/mL (Cutoff= 300); Opiate Screen,Urine Negative ng/mL (Cutoff=300); Phencyclidine Screen,Urine Negative ng/mL (Cutoff=25)
--- NOTE | 2018-12-03 22:43 | Discharge Summary ---
Date of Encounter: 12/03/18 Time of Encounter: 22:44 - Discharge Diagnosis (1) 33 weeks gestation of Priority: Primary Status: Acute Comments: Admitted to observation for complaints of possible labor (2) labor in third trimester without delivery Priority: Secondary Status: Acute Comments: Patient received a round of steroids a 28 weeks for labor. She received a second round at 32 weeks when it was presumed she was going to deliver. Her contractions stopped and cervical change stopped and she was sent home. On arrival today she is found to be 5-6 cm which is no change from her previous exam by Dr. Nazario yesterday. Contractions are rare on the toco monitor and she has had no significant cervical change in > 1 hr. (3) NST (non-stress test) reactive Priority: Secondary Status: Acute Comments: FHR 130 bpm, moderate variability, +15 x 15 accelerations, no decelerations. - Discharge Medications Prescriptions: New cephALEXin [Keflex] 500 mg PO BID 5 Days #10 capsule No Action RX: Pnv No.122/Iron/Folic Acid [ Multi Tablet] 1 each PO DAILY Famotidine [Pepcid] 20 mg PO HS PRN PRN Reason: Heartburn Home Medications: RX: Pnv No.122/Iron/Folic Acid [ Multi Tablet] 1 each PO DAILY 11/30/17 [History] Famotidine [Pepcid] 20 mg PO HS PRN 10/23/18 [History] cephALEXin [Keflex] 500 mg PO BID 5 Days #10 capsule 12/03/18 [Rx] Allergies/Adverse Reactions: Allergy/AdvReac Type Severity Reaction Status Date / Time aripiprazole [From Abilify] Allergy Swelling Verified 11/22/18 14:52 of Lip/Tongue/Throat Carbinoxamine [From Rondec] Allergy Anaphylaxis Verified 11/22/18 14:52 prednisone Allergy Hives Verified 11/22/18 14:52 pseudoephedrine [From Ronde] Allergy Anaphylaxis Verified 11/22/18 14:52 Data Procedures and tests throughout hospitalization: Laboratory Tests 12/03/18 12/03/18 22:08 22:08 Urine Color Yellow Urine Clarity Cloudy A Urine pH 6.5 Ur Specific [place] 1.015 Urine Protein Negative Urine Glucose (UA) Normal Urine Ketones Negative Urine Blood Negative Urine Nitrite Negative Urine Bilirubin Negative Urine Urobilinogen Normal Ur Leukocyte Esterase Large H Urine Microscopic RBC 0-3 Urine Microscopic WBC 50-100 H Ur Squamous Epith Cells Many H Urine Bacteria Few Hyaline Casts None Seen Ur Culture Indicated? NO. A Urine Opiates Screen Negative Ur Barbiturates Screen Negative Ur Phencyclidine Scrn Negative Ur Amphetamines Screen Negative U Benzodiazepines Scrn Negative Urine Cocaine Screen Negative U Marijuana (THC) Screen Negative Ur Drug Screen Interp See Below Labs on day of discharge: Labs from last 24 hours 12/03/18 12/03/18 22:08 22:08 Urine Color Yellow Urine Clarity Cloudy A Urine pH 6.5 Ur Specific [place] 1.015 Urine Protein Negative Urine Glucose (UA) Normal Urine Ketones Negative Urine Blood Negative Urine Nitrite Negative Urine Bilirubin Negative Urine Urobilinogen Normal Ur Leukocyte Esterase Large H Urine Microscopic RBC 0-3 Urine Microscopic WBC 50-100 H Ur Squamous Epith Cells Many H Urine Bacteria Few Hyaline Casts None Seen Ur Culture Indicated? NO. A Urine Opiates Screen Negative Ur Barbiturates Screen Negative Ur Phencyclidine Scrn Negative Ur Amphetamines Screen Negative U Benzodiazepines Scrn Negative Urine Cocaine Screen Negative U Marijuana (THC) Screen Negative Ur Drug Screen Interp See Below Date of admission: 12/03/18 21:39 Discharging clinician: Laura Damon Anticipated date of discharge: 12/03/18 - Patient Status Disposition: Home, Self-Care Condition: Good Functional capacity at discharge: independent ambulation Overall status at discharge: patient is progressing back to baseline - Discharge Instructions Additional Instructions: LABOR AND DELIVERY DISCHARGE INSTRUCTIONS Signs and Symptoms to be Reported to your Doctor Immediately: * Sudden gush, continuous or intermittent lead of fluid from vagina (note the time of gush and color of fluid) * Onset of bright red vaginal bleeding with or without pain (if you had a vaginal exam during this visit you may notice some dark red spotting. This is normal.) * Lower abdominal cramping or backache that is premenstrual-like feeling. * More than 6 contractions in one hour. * Burning during urination, having to urinate more frequently or pain in your mid-back. * A change in the baby's activity. This could be an increase or decrease in activity. * Severe headache which does not go away with tylenol. * Sudden swelling in the face, hands, arms and/or legs. * Upper abdominal pain - sometimes associated with heartburn or nausea and is not relieved by Maalox, Mylanta or Tums. * Dizziness or blurred vision or visual disturbances (seeing stars/lights). * Kick Counts One hour after a meal, lay down on one side in a quiet place. Count the number of vimal the baby moves during an hour. If less than 6 movements, notify your physician. Diet: *Force fluids - 8-10 tall glasses of fluid per day. May include popsicles and jello. *Limit caffeine - this includes chocolate, coffee, tea, any soft drink containing such as all odilon, Heladio Yellow and Mountain Dew - Diet and Activity Activity: resume usual activities as tolerated Diet: regular diet Hospital Course RN DOCUMENT IMPROVEMENT Hospital course: Patient arrived with complaints of contractions evening. She is a G at 33 weeks today. She does report positive movement, denies vaginal bleeding and leakage of fluid. She was admitted for labor last week and received a second course of steroids. Her cervix changed to 6 cm and did not change any further so the decision was made to send her home with labor precautions at that time. She was seen in the office yesterday by Dr. Nazario in her cervical exam was unchanged at 6 cm. On arrival today her cervix is still unchanged and contractions are rare. No significant cervical change is noted in greater than one hour so patient was discharged home with labor precautions. She is to return for routine care as scheduled with Dr. Nazario. She is encouraged to return to labor and delivery for increasing pain and frequency of contractions or for vaginal bleeding or fluid leakage. It did appear as though she has a UTI today so she was started on Keflex twice a day for 5 days. Urine culture was collected and sent. Dr. Aly was made aware. Time Attestation: Total time spent providing and/or coordinating discharge services: Time Spent: Less than 30 minutes Exam - Constitutional General appearance IM: A&O X 3, no acute distress, answers questions appropriately - Respiratory Respiratory exam: Present: CTAB - Cardiovascular Cardiovascular exam IM: Present: RRR, +S1, +S2 - GI/Abdominal GI/Abdominal exam IM: normal bowel sounds, soft - Rectal Rectal exam: deferred - External exam: normal external exam - Extremities Exam Extremities exam IM: Present: full ROM, normal capillary refill, normal inspection - Neurological Exam Neurological exam: alert, normal gait, oriented X3 - VTE Reasons for not Prescribing Prophylaxis: Treatment not Indicated - Low risk for VTE
== END | disposition home or self-care (01) ==
LOC: 1NENULAB
PROVIDERS: ADMIT Registered Nurse; ATTEND Registered Nurse

== ENCOUNTER → 2018-12-05 19:17 | Observation (INO) ==
--- NOTE | 2018-12-05 19:31 | OB/GYN Progress Note ---
Date of Encounter: 12/05/18 Time of Encounter: 19:12 - Assessment and Plan (1) 33 weeks gestation of Current Visit: Yes Status: Acute Reactive NST Stable cervical exam for past week Encouraged maternity support belt to help decreased pelvic pressure Discharged home with PTL precautions Follow up in the office with routine care and PRN POC per consult with Dr Aly (2) NST (non-stress test) reactive Current Visit: Yes Status: Acute Subjective - Subjective Interval history: Ms Sanchez is a at 33 weeks and 2 days that presents to triage with c/o vaginal pressure that has increased today. She states positive movement. She denies headache, vision changes, epigastric pain, leaking of fluid, vaginal discharge, and vaginal bleeding. She is seen by the midwives for her . She has been treated with steroids for PTL earlier in the ( about 1 week ago). Antepartum ROS: movement normal, no vaginal bleeding Objective - Vital Signs Vital Signs: Intake and Output 12/05/18 12/05/18 12/05/18 07:59 15:59 23:59 Other: Weight 62.142 kg Patient Weight 12/05/18 23:59 Weight 62.142 kg - Exam FHR: auscultation normal, category 1 (160 baseline. Cat 1 tracing; infrequent irregular ctx) Abdomen: Present: normal appearance, soft, gravid. Absent: tenderness Uterus: Present: normal. Absent: firm, tenderness Cervical dilation: 6 Cervix effacement: 65 station: -2
== END | disposition home or self-care (01) ==
LOC: 1NENULAB
PROVIDERS: ADMIT Advanced Practice Midwife; ATTEND Advanced Practice Midwife

== ENCOUNTER → 2018-12-29 23:45 | Observation (INO) ==
[2018-12-29 21:11] LABS: Bilirubin,Urine Negative (Negative); Blood,Urine Negative (Negative); Clarity,Urine Cloudy (Clear); Color,Urine Yellow (Yellow); Glucose,Urine (UA) Normal (Normal); Ketones,Urine Negative (Negative); Leukocyte Esterase,Urine Large (Negative); Nitrite,Urine Negative (Negative); Protein,Urine Trace mg/dL (Neg-Trace); Urobilinogen,Urine Normal (Normal)
[2018-12-29 21:12] LABS: Bacteria,Urine Moderate per hpf (None-Few); Hyaline Casts,Urine Moderate per lpf (None-Few); Squamous Epithelial Cell,Urine Many per lpf (None-Few); WBC,Urine 50-100 per hpf (0-3)
[2018-12-29 21:57] LABS: Amphetamine Screen,Urine Negative ng/mL (Cutoff=1000); Barbiturate Screen,Urine Negative ng/mL (Cutoff=200); Benzodiazepines Screen,Urine Negative ng/mL (Cutoff=200); Cannabinoid Screen,Urine Negative ng/mL (Cutoff = 50); Cocaine Screen,Urine Negative ng/mL (Cutoff= 300); Opiate Screen,Urine Negative ng/mL (Cutoff=300); Phencyclidine Screen,Urine Negative ng/mL (Cutoff=25)
--- NOTE | 2019-01-04 13:14 | OB/GYN Progress Note ---
Date of Encounter: 12/29/18 Time of Encounter: 21:00 - Assessment and Plan (1) 36 weeks gestation of Status: Acute (2) False labor Status: Acute Patient was seen and evaluated by RN and found not to make any cervical awake overnight counselor the time present. NST was reactive. Objective - Labs Labs: Abnormal lab results Cloudy (Clear) A 12/29/18 20:40 Ur Leukocyte Esterase Large (Negative) H 12/29/18 20:40 5-15 per hpf (0-3) H 12/29/18 20:40 50-100 per hpf (0-3) H 12/29/18 20:40 Ur Squamous Epith Cells Many per lpf (None-Few) H 12/29/18 20:40 Moderate per hpf (None-Few) H 12/29/18 20:40 Hyaline Casts Moderate per lpf (None-Few) H 12/29/18 20:40 Ur Culture Indicated? NO. (NO) A 12/29/18 20:40
== END | disposition home or self-care (01) ==
LOC: 1NENULAB
PROVIDERS: ADMIT Obstetrics & Gynecology; ATTEND Obstetrics & Gynecology

== ENCOUNTER 2020-11-22 02:14 | Inpatient (IN) ==
[~2020-11-22 02:14] MED LIST changes: +*HR* HYDROmorphone (PF) 1 MG/ML SYRINGE IVP PRN; -Acetaminophen 325 MG TABLET PO STA; +Azithromycin 500 MG in 0.9 % Sodium Chloride 250 ML IVPB ONE; +Famotidine 20 MG/2 ML VIAL IVP PRN; +Metoclopramide 10 MG/2 ML VIAL IVP PRN; +Naloxone 0.4 MG/ML INJ IVP PRN; +Ondansetron 4 MG/2 ML VIAL IVP PRN
[2020-11-22] MEDS ORDERED: Ringers Solution, Lactated 1,000 ML IVC SCH (02:15)
[2020-11-22 02:46] LABS: Hematocrit 36.1 % (35.3-44.9); Hemoglobin 11.8 g/dL (11.5-15.4); Mean Corpuscular HGB Conc 32.7 g/dL (31.6-35.5); Mean Corpuscular Hemoglobin 29.4 pg (28.0-33.3); Mean Platelet Volume 11.4 fL (9.4-12.4); Platelet Count 198 K/mcL (140-400); Red Blood Count 4.01 M/mcL (3.82-4.97); Red Cell Distribution Width 13.1 % (11.5-14.5); White Blood Count 8.1 K/mcL (4.3-11.1)
[2020-11-22 02:47] LABS: Amorphous Sediment,Urine Few per hpf (None-Few); Bacteria,Urine Few per hpf (None-Few); Bilirubin,Urine Negative (Negative); Blood,Urine Moderate (Negative); Clarity,Urine Clear (Clear); Color,Urine Light-Yellow (Yellow); Glucose,Urine (UA) Normal (Normal); Ketones,Urine Negative (Negative); Leukocyte Esterase,Urine Small (Negative); Mucus,Urine Few per lpf (None-Few); Nitrite,Urine Negative (Negative); PH,Urine 7.5 pH Units (5.0-8.0); Protein,Urine Negative (Neg-Trace); RBC,Urine 50-100 per hpf (0-3); Squamous Epithelial Cell,Urine Few per hpf (None-Few); Urobilinogen,Urine Normal (Normal)
[2020-11-22 02:55] LABS: Prothrombin Time 11.6 Seconds (9.4-12.1)
[2020-11-22 02:56] LABS: Amphetamine Screen,Urine Negative ng/mL (Cutoff=1000); Barbiturate Screen,Urine Negative ng/mL (Cutoff=200); Benzodiazepines Screen,Urine Negative ng/mL (Cutoff=200); Cannabinoid Screen,Urine Negative ng/mL (Cutoff = 50); Cocaine Screen,Urine Negative ng/mL (Cutoff= 300); Opiate Screen,Urine Negative ng/mL (Cutoff=300); Phencyclidine Screen,Urine Negative ng/mL (Cutoff=25)
[2020-11-22 02:57] LABS: Activated Partial Thrombo Time 28.4 Seconds (26.0-36.0)
[2020-11-22 05:09] LABS: Influenza A PCR Negative (Negative); Influenza B PCR Negative (Negative); Resp. Syncytial Virus PCR Negative (Negative)
[2020-11-22 05:11] LABS: SARS-CoV-2 by PCR (In House) Negative (Negative)
[2020-11-22] MEDS: *HR* HYDROmorphone (PF) 1 MG/ML SYRINGE IVP PRN ×3 (06:00→12:20)
[2020-11-22] MEDS: Ringers Solution, Lactated 1,000 ML IVC SCH (18:39)
[2020-11-22] MEDS ORDERED: *HR* Nalbuphine 10 MG/ML AMPUL IV ONE (20:10)
[2020-11-23] MEDS: Ringers Solution, Lactated 1,000 ML IVC SCH ×3 (02:38→17:38)
[2020-11-23] MEDS ORDERED: *HR* Nalbuphine 10 MG/ML AMPUL IV ONE (02:44)
[2020-11-23 04:37] LABS: Basophils % 0.2 %; Eosinophils # 0.2 K/mcL (0.0-0.6); Eosinophils % 1.8 %; Hematocrit 31.3 % (35.3-44.9); Immature Granulocytes % 0.6 % (0-4); Lymphocytes # 1.5 K/mcL (0.6-4.6); Lymphocytes % 17.1 %; Mean Corpuscular HGB Conc 32.6 g/dL (31.6-35.5); Mean Corpuscular Hemoglobin 29.7 pg (28.0-33.3); Mean Corpuscular Volume 91.3 fL (83.0-100.0); Mean Platelet Volume 10.8 fL (9.4-12.4); Monocytes # 0.7 K/mcL (0.0-1.3); Monocytes % 7.7 %; Neutrophils # 6.3 K/mcL (1.6-8.9); Platelet Count 173 K/mcL (140-400); Red Blood Count 3.43 M/mcL (3.82-4.97); Red Cell Distribution Width 13.2 % (11.5-14.5); Segmented Neutrophils % 72.6 %; White Blood Count 8.7 K/mcL (4.3-11.1)
[2020-11-23] MEDS: *HR* Nalbuphine 10 MG/ML AMPUL IV PRN ×5 (04:38→21:36)
[2020-11-23 04:39] LABS: Hemoglobin 10.2 g/dL (11.5-15.4)
[2020-11-23 04:47] LABS: Prothrombin Time 11.2 Seconds (9.4-12.1)
[2020-11-23 04:49] LABS: Activated Partial Thrombo Time 28.5 Seconds (26.0-36.0)
[2020-11-23] MEDS ORDERED: FLUoxetine 20 MG CAPSULE PO SCH (09:00)
[2020-11-23] MEDS ORDERED: Prenatal Vit/FA 1 EACH TABLET PO SCH (09:00)
[2020-11-23] MEDS ORDERED: Piperacillin/Tazobactam 3.375 GM in 0.9 % Sodium Chloride Mini Bag 100 ML IVPB SCH (23:46)
[2020-11-24] MEDS: *HR* Nalbuphine 10 MG/ML AMPUL IV PRN ×2 (01:46→04:54)
[2020-11-24] MEDS ORDERED: *HR* HYDROmorphone (PF) 1 MG/ML SYRINGE IVP ONE ×2 (05:50→08:27)
[2020-11-24] MEDS: Ringers Solution, Lactated 1,000 ML IVC SCH (06:04)
[2020-11-24] MEDS ORDERED: *HR* OxyCODONE/APAP 5/325 TABLET PO PRN (06:35)
[2020-11-24] MEDS ORDERED: Piperacillin/Tazobactam 3.375 GM in 0.9 % Sodium Chloride Mini Bag 100 ML IVPB SCH ×2 (08:00→12:00)
[2020-11-24] MEDS ORDERED: *HR* LORazepam 2 MG/ML VIAL IVP ONE (09:23)
[2020-11-24] MEDS ORDERED: *HR* HYDROmorphone 20 MG/20 ML PCA IVC PRN (09:26)
[2020-11-24] MEDS ORDERED: Oxytocin 20 units/ LR 1000 mL 20 UNIT/1,000 ML BAG IVC ONE ×2 (09:32→12:37)
[2020-11-24 09:36] LABS: Basophils % 0.3 %; Eosinophils # 0.1 K/mcL (0.0-0.6); Hematocrit 29.7 % (35.3-44.9); Hemoglobin 9.6 g/dL (11.5-15.4); Immature Granulocytes % 0.5 % (0-4); Lymphocytes # 1.7 K/mcL (0.6-4.6); Lymphocytes % 15.7 %; Mean Corpuscular HGB Conc 32.3 g/dL (31.6-35.5); Mean Corpuscular Hemoglobin 29.1 pg (28.0-33.3); Mean Platelet Volume 10.8 fL (9.4-12.4); Monocytes # 0.7 K/mcL (0.0-1.3); Monocytes % 6.8 %; Neutrophils # 8.3 K/mcL (1.6-8.9); Platelet Count 160 K/mcL (140-400); Segmented Neutrophils % 75.7 %; White Blood Count 10.9 K/mcL (4.3-11.1)
[2020-11-24 09:44] LABS: INR 1.1; Prothrombin Time 12.6 Seconds (9.4-12.1)
[2020-11-24 09:46] LABS: Activated Partial Thrombo Time 29.7 Seconds (26.0-36.0)
[2020-11-24] MEDS ORDERED: SODIUM CHLORIDE 0.9% IVPB ONE (10:02)
[2020-11-24] MEDS ORDERED: DESMOPRESSIN ACETATE IVPB ONE (10:02)
[2020-11-24] MEDS ORDERED: Oxytocin 20 units/ LR 1000 mL 20 UNIT/1,000 ML BAG IVC SCH (13:31)
[2020-11-24] MEDS ORDERED: Lanolin 7 G OINT...G. TP PRN (13:31)
[2020-11-24] MEDS ORDERED: Acetaminophen 325 MG TABLET PO PRN (13:31)
[2020-11-24] MEDS ORDERED: Benzocaine/Menthol 56 GM AEROSOL SPRAY TP PRN (13:31)
[2020-11-24] MEDS: Ibuprofen 600 MG TABLET PO PRN (20:55)
[2020-11-24 22:39] LABS: Basophils % 0.2 %; Eosinophils # 0.2 K/mcL (0.0-0.6); Hematocrit 25.4 % (35.3-44.9); Hemoglobin 8.4 g/dL (11.5-15.4); Immature Granulocytes % 0.8 % (0-4); Lymphocytes % 18.7 %; Mean Corpuscular HGB Conc 33.1 g/dL (31.6-35.5); Mean Corpuscular Hemoglobin 29.3 pg (28.0-33.3); Mean Corpuscular Volume 88.5 fL (83.0-100.0); Mean Platelet Volume 10.5 fL (9.4-12.4); Monocytes # 0.7 K/mcL (0.0-1.3); Monocytes % 6.2 %; Neutrophils # 7.7 K/mcL (1.6-8.9); Platelet Count 171 K/mcL (140-400); Red Blood Count 2.87 M/mcL (3.82-4.97); Red Cell Distribution Width 12.7 % (11.5-14.5); Segmented Neutrophils % 72.1 %; White Blood Count 10.6 K/mcL (4.3-11.1)
[2020-11-25 04:12] LABS: Basophils % 0.3 %; Eosinophils # 0.2 K/mcL (0.0-0.6); Eosinophils % 2.4 %; Hematocrit 27.2 % (35.3-44.9); Hemoglobin 8.9 g/dL (11.5-15.4); Immature Granulocytes % 1.1 % (0-4); Lymphocytes # 2.5 K/mcL (0.6-4.6); Lymphocytes % 27.6 %; Mean Corpuscular HGB Conc 32.7 g/dL (31.6-35.5); Mean Corpuscular Hemoglobin 29.4 pg (28.0-33.3); Mean Corpuscular Volume 89.8 fL (83.0-100.0); Mean Platelet Volume 10.2 fL (9.4-12.4); Monocytes # 0.7 K/mcL (0.0-1.3); Monocytes % 7.5 %; Neutrophils # 5.5 K/mcL (1.6-8.9); Platelet Count 173 K/mcL (140-400); Red Blood Count 3.03 M/mcL (3.82-4.97); Red Cell Distribution Width 12.9 % (11.5-14.5); Segmented Neutrophils % 61.1 %
[2020-11-25] MEDS: Ibuprofen 600 MG TABLET PO PRN (07:40)
[2020-11-25 08:33] VITALS: BP 85/54
[2020-11-25] MEDS ORDERED: Prenatal Vit/FA 1 EACH TABLET PO SCH (09:00)
[2020-11-25] MEDS ORDERED: Etonogestrel 68 MG IMPLANT IL ONE (09:59)
[2020-11-25] MEDS ORDERED: Lidocaine/EPI 1:200k 1% PF 10 ML VIAL INFILT ONE (10:00)
[2020-11-26 11:55] LABS: Ristocetin Cofactor-VWF Active 85 % (51-215); Von Willebrand Factor Ag 132 % (52-214)
== END 2020-11-25 11:19 | disposition home or self-care (01) | DRG 560 ==
LOC: 1NENULAB → 1NENUOBS 13:32 → 1NENULAB 11-24 08:27 → 1NENUOBS 11-24 13:27
PROVIDERS: ADMIT Advanced Practice Midwife; ATTEND Advanced Practice Midwife